=== PATIENT | female | born 1965 | race Hispanic/Latino ===

== ENCOUNTER 2021-08-04 11:05 | Emergency (ER) | payer BC, OTHER ==
[~2021-08-04] VITALS: Ht 154.9 cm; Wt 70.8 kg
[2021-08-04] MEDS ORDERED: VYTORIN 10-201 EACH PO (12:57)
[2021-08-04] MEDS ORDERED: LOSARTAN POTASS25 MG PO (12:57)
[2021-08-04] MEDS ORDERED: PIOGLITAZONE HC45 MG PO (12:57)
[2021-08-04] MEDS ORDERED: LACTATED RINGER'S 1,000 ML ONE (13:21)
[2021-08-04] MEDS ORDERED: HYDROCODONE/APAP 5MG-325MG TAB PO NR (15:30)
[2021-08-04] MEDS ORDERED: IBUPROFEN 400 MG TAB PO NR (16:45)
[2021-08-04] MEDS ORDERED: BACITRACIN-POL3.5 GM OU (16:48)
[2021-08-04] MEDS ORDERED: HYDROCODON-ACE1 EAC9 PO (16:49)
[2021-08-04] MEDS ORDERED: IBUPROFEN 400 MG TAB ONE (16:55)
== END 2021-08-04 17:04 | disposition home or self-care (01) ==
LOC: FSED 12:20
DX: T26.82XA Corrosions of other specified parts of left eye and adnexa, initial encounter (principal); T26.81XA Corrosions of other specified parts of right eye and adnexa, initial encounter; Y92.89 Other specified places as the place of occurrence of the external cause; E11.9 Type 2 diabetes mellitus without complications; I10 Essential (primary) hypertension; E78.5 Hyperlipidemia, unspecified
CPT/HCPCS: 99283; J7121